=== PATIENT | male | born 1955 | race Caucasian/White ===

== ENCOUNTER 2016-11-14 13:52 | Emergency (ER) | payer OTHER ==
[~2016-11-14] VITALS: Ht 188 cm; Wt 77.1 kg
[2016-11-14] MEDS ORDERED: NORCO 5-325 TA1 EACH PO (17:40)
[2016-11-14 18:07] VITALS: BP 124/83
== END 2016-11-14 18:35 | disposition home or self-care (01) ==
LOC: ER 13:52
DX: S06.0X0A Concussion without loss of consciousness, initial encounter (principal); S39.012A Strain of muscle, fascia and tendon of lower back, initial encounter; F41.9 Anxiety disorder, unspecified; Z98.890 Other specified postprocedural states; Z91.041 Radiographic dye allergy status; W17.89XA Other fall from one level to another, initial encounter; Y93.89 Activity, other specified; Y92.89 Other specified places as the place of occurrence of the external cause; Y99.8 Other external cause status